=== PATIENT | female | born 1980 | race Caucasian/White ===

== ENCOUNTER 2022-04-16 10:37 | Day surgery (SDC) | payer OTHER, SELFPAY ==
[2022-04-16 11:33] VITALS: BMI 34.7
[2022-04-16 11:34] LABS: UPreg QC Valid YES; Urine Pregnancy NEGATIVE (NEGATIVE)
--- NOTE | 2022-04-16 11:34 | P.CONAN_ITS ---
FORM[facility]LY [facility] Past Medical History Medical History Anxiety Asthma Waldrop palsy Depression GERD (gastroesophageal reflux disease) Family History Family history of problems with anesthesia: No Surgical History Surgical History (Updated 04/15/22 @ 10:09 by Bea Novak RN) H/O gastric bypass H/O laparoscopic adjustable gastric banding Hx of appendectomy Hx of section Hx of cholecystectomy Hx of laparoscopy History of Problems with Anesthesia: No Social History Social History Patient Tobacco Use Status: Former Tobacco user Quit Date: 5 yr ago Use of substances other than those prescribed or required for medical reasons: Yes Substance Use Frequency: Occasionally Are you DNR?: No Advance Directives: No Advance Directives Information Provided: Yes Meds Allergies Allergy/AdvReac Type Severity Reaction Status Date / Time adhesive tape [TAPE,ADHESIVE] Allergy Intermediate itch/rednes Verified 04/16/22 11:36 s Penicillins [PENICILLINS] Allergy Unknown SWELLING Verified 04/16/22 11:36 venlafaxine [From Effexor] AdvReac Mild Confusion Verified 04/16/22 11:38 sertraline [From ZOLOFT] AdvReac Unknown FORGET Verified 04/16/22 11:36 WHO I AM lorazepam [From Ativan] AdvReac Confusion Verified 04/16/22 11:38 Active Medications: Current Medications Albuterol Sulfate (Albuterol Sulfate (0.083%) 2.5 Mg/3 Ml Vial.Neb) 2.5 mg INHALE ONCE PRN PRN Reason: Shortness of Breath/Wheezing Lactated Ringer's (Lr) 1,000 mls @ 100 mls/hr IVCONT .Q10H [facility] Home Medications Medication Instructions Recorded Confirmed Last Taken Type albuterol sulfate 90 mcg/actuation 2 puff inhalation Q4-6H PRN 04/15/22 04/15/22 Unknown History aerosol inhaler Shortness Of Breath Or Wheezing diazepam 5 mg tablet 5 mg PO 04/15/22 Unknown History duloxetine 60 mg capsule,delayed 60 mg PO DAILY 04/15/22 04/15/22 Unknown History release eszopiclone 1 mg tablet 1 mg PO BEDTIME 04/15/22 04/15/22 Unknown History fluticasone propionate 220 2 puff inhalation BID 04/15/22 04/15/22 Unknown History mcg/actuation HFA aerosol inhaler norethindrone 1 mg-ethinyl 1 tab PO DAILY 04/15/22 04/15/22 Unknown History estradiol 20 mcg (24)-iron 75 mg (4) tablet (Blisovi 24 Fe) ondansetron 4 mg disintegrating 4 mg 04/15/22 Unknown History tablet oxycodone 5 mg tablet 5 mg PO Q6H PRN Pain 04/15/22 04/15/22 Unknown History pantoprazole 40 mg tablet,delayed 40 mg PO DAILY 04/15/22 04/15/22 Unknown History release quetiapine 200 mg tablet 200 mg PO BEDTIME 04/15/22 04/15/22 Unknown History sucralfate 1 gram tablet 1 g PO BID 04/15/22 04/15/22 Unknown History topiramate 100 mg tablet 100 mg PO DAILY 04/15/22 04/15/22 Unknown History Exam Exam Date and Time: April 16, 2022 1134 Airway Mallampati Class: III TM Dist: >3cm Neck ROM: Full Assessment and Plan Assessment Anesthesia Assessment: Anesthesia Plan Discussed and Chart Reviewed Final Anesthetic Review Family History of Problems with Anesthesia: No History of Problems with Anesthesia: No NPO: Yes ASA Class: II Final Preanesthetic Review: No Changes in Pt Med Stat, Meds/Allgs Chart Reviewed, Consent Obtained/Reviewed and Anes Risks/Benef Reviewed Patient Risk: Intermediate Procedure Risk: Low Anesthetic Plan Anesthetic Plan: MAC: Disposition: Standard PACU
[2022-04-16 11:53] VITALS: BP 116/81; PULSE 83; RESP 15; TEMP 36.7; O2SAT 96
[2022-04-16] MEDS: Lactated Ringers 1,000 ML 100 ML IVCONT (11:54)
[2022-04-16 12:37] VITALS: BP 112/60; PULSE 76; RESP 14; TEMP 36.6; O2SAT 98
--- NOTE | 2022-04-16 12:41 | PM.OP ---
Brief Operative Note Date of Service: 04/16/22 Pre-op diagnosis: Abdominal pain Post-op diagnosis: other (Hiatal hernia) Procedure: Upper endoscopy with biopsies Surgeon: Cheo Chavez Anesthesia: MAC Was an Potato Picker used for this Procedure?: No Estimated blood loss (mL): 2.0 Pathology: other (A. Gastric remnant) Condition: stable Disposition: PACU
[2022-04-16 12:53] VITALS: BP 109/67; PULSE 71; RESP 16; TEMP 36.6; O2SAT 99
--- NOTE | 2022-04-16 15:22 | OP_ITS ---
SURGEON: Cheo Chavez MD INDICATIONS: The patient presents for evaluation of abdominal pain and abnormal upper GI series. Full consent has been obtained from her for this, including risks of bleeding and perforation. PREOPERATIVE DIAGNOSIS: POSTOPERATIVE DIAGNOSIS: PROCEDURE PERFORMED: Upper endoscopy with biopsies. ESTIMATED BLOOD LOSS: COMPLICATIONS: ANESTHESIA: Monitored anesthesia care. ASSISTANTS: SPECIMENS: PREOPERATIVE DIAGNOSES: Abdominal pain and abnormal upper GI series, POSTOPERATIVE DIAGNOSES: Abdominal pain and abnormal upper GI series, normal gastrojejunostomy anastomosis, small hiatal hernia. DESCRIPTION OF PROCEDURE: The patient was placed in the left lateral decubitus position. The Olympus video gastroscope was passed into the posterior oropharynx and upper esophagus under direct vision. The scope was passed slowly to the distal esophagus. The gastroesophageal junction appeared at 36 cm. There was no sign of any esophagitis, stricture, ring, nor Guido's esophagus. With insufflation of air, the gastroesophageal junction opened widely and allowed easy passage of the scope. There was a small hiatal hernia. The gastrojejunostomy anastomosis was seen at about 50 cm. Right at the anastomosis was a piece of blue suture material with a piece of a plastic at the end of it. This was not causing any type of obstruction nor did it look sharp in anyway that might cause an injury. The anastomosis appeared normal and the small bowel was cannulated for at least 20 cm and appeared normal. The scope was withdrawn back into the gastric remnant. I did not visualize any sign of ulceration nor inflammation at the anastomosis. The entire gastric remnant in the forward view and retroflexed positions appeared normal. I did obtain biopsies from it. The scope was withdrawn back in the esophagus. Again, with insufflation of air, there did not appear to be any sign of stricture at the gastroesophageal junction. Therefore, no dilation was performed. The esophageal mucosa appeared normal. The scope was withdrawn from the patient. She tolerated the procedure well and was returned to the recovery area in stable condition. IMPRESSION: 1. Hiatal hernia. 2. Normal gastrojejunostomy anastomosis. 3. Some type of retained portion of a piece of plastic on a piece of suture material noted at the gastrojejunostomy anastomosis. This was not causing any type of blockage nor any apparent injury. PLAN: The results of the biopsies will be checked. She will continue her current regimen of pantoprazole and sucralfate. She will be followed up in my office. She will also follow up with her surgeon, Dr. Yee.This has been discussed with her significant other. MD BRANDON Napier/GRECIA / [id number] MTDD
== END 2022-04-16 13:13 | disposition home or self-care (01) ==
PROVIDERS: Nurse Practitioner; PCP Internal Medicine; Visit Provider Internal Medicine
PROC: (CPT 43239; principal; 2022-04-16 11:40)
DX: R10.13 Epigastric pain (principal); R13.19 Other dysphagia; R63.4 Abnormal weight loss; Z68.34 Body mass index [BMI] 34.0-34.9, adult; Z80.0 Family history of malignant neoplasm of digestive organs; K44.9 Diaphragmatic hernia without obstruction or gangrene; Z18.2 Retained plastic fragments; Z98.0 Intestinal bypass and anastomosis status; K21.9 Gastro-esophageal reflux disease without esophagitis; J45.909 Unspecified asthma, uncomplicated; G51.0 Bell's palsy; F41.8 Other specified anxiety disorders; Z88.8 Allergy status to other drugs, medicaments and biological substances; Z98.84 Bariatric surgery status; Z79.51 Long term (current) use of inhaled steroids; Z79.899 Other long term (current) drug therapy; L23.1 Allergic contact dermatitis due to adhesives; Z88.0 Allergy status to penicillin; Z90.49 Acquired absence of other specified parts of digestive tract; Z87.891 Personal history of nicotine dependence
CPT/HCPCS: 43239; 81025; 88305; 88342